=== PATIENT | female | born 1940 | race Caucasian/White ===

== ENCOUNTER 2023-11-03 20:33 | Inpatient (IN) | payer MEDICARE, OTHER ==
[~2023-11-03] VITALS: Ht 170.2 cm; Wt 83.5 kg
[2023-11-03 21:00] VITALS: PULSE 101; RESP 23; O2SAT 94
[2023-11-03 21:27] LABS: Basophils # (auto) 0 10 ^3/uL (0-0.2); Eosinophils # (auto) 0 10 ^3/uL (0-0.8); Mean Corpuscular Volume 98.5 fL (80.0-100.0)
[2023-11-03 21:28] LABS: Basophils % (auto) 0.1 % (0.0-2.0); Hematocrit 52.3 % (36.0-46.0); Hemoglobin 18.3 g/dL (12.2-16.2); Lymphocytes # (auto) 0.7 10 ^3/uL (0.4-5.4); Lymphocytes % (auto) 5.4 % (10.0-50.0); Mean Corpuscular Hemoglobin 34.5 pg (28.0-32.0); Monocytes % (auto) 7.6 % (0.0-12.0); Neutrophils # (auto) 11.5 10 ^3/uL (1.6-8.6); Neutrophils % (auto) 86.9 % (37.0-80.0); Nucleated Red Blood Cells % 0.2 %; Red Blood Cells 5.31 10^6/uL (4.0-5.20); Red Cell Distribution Width 12.9 % (11.8-14.3); White Blood Cell 13.2 10^3/uL (4.4-10.8)
[2023-11-03 21:49] LABS: Alanine Aminotransferase 18 U/L (7-40); Albumin 4.3 g/dL (3.2-4.8); Alkaline Phosphatase 68 U/L (46-116); Anion Gap 18 (5-15); Aspartate Aminotransferase 19 U/L (13-40); BUN/Creatinine Ratio 14.1 (10.0-20.0); Blood Urea Nitrogen 66 mg/dL (9-23); Calcium 10.6 mg/dL (8.7-10.4); Carbon Dioxide 17 mmol/L (20-30); Chloride 101 mmol/L (98-107); Glucose 144 mg/dL (74-106); Potassium 4.2 mmol/L (3.5-5.1); Sodium 136 mmol/L (136-145)
[2023-11-03 21:50] LABS: Bilirubin, Total 1.5 mg/dL (0.2-1.0); Total Protein 7.7 g/dL (5.7-8.2)
[2023-11-03] MEDS: SODIUM CHLORIDE 0.9% 1,000 ML IV ONE (21:57)
[2023-11-03 22:02] LABS: Lactic Acid w/Reflex 2.8 mmol/L (0.4-2.0)
[2023-11-03] MEDS ORDERED: ACETAMINOPHEN 325 MG TAB PO PRN (22:45)
[2023-11-03] MEDS ORDERED: ONDANSETRON HCL 4 MG/2 ML VIAL IV PRN (22:45)
[2023-11-03] MEDS ORDERED: HYDROcodone-ACET 5/325MG TAB PO PRN (22:45)
[2023-11-03] MEDS ORDERED: DOCUSATE SOD 100 MG CAP PO PRN (22:45)
[2023-11-03] MEDS ORDERED: VANCOMYCIN PER PHARMACY 0 MG IV SCH (22:45)
[2023-11-03] MEDS: ASPirin 81 mg TAB PO ONE (23:25)
[2023-11-03] MEDS: cefTRIAXone 1GM/50ML D5W 50 ML IV ONE (23:25)
[2023-11-03] MEDS ORDERED: NITROGLYCERIN 0.4 MG SL TAB SL PRN (23:30)
[2023-11-03] MEDS ORDERED: MORPHINE SULFATE INJ 2 MG/ml SYRG IV PRN (23:30)
[2023-11-03] MEDS: VANCOMYCIN 1GM/200ML 200 ML IV ONE (23:57)
[2023-11-04] VITALS (10 sets, daily range): BP systolic 95–159; BP diastolic 50–81; PULSE 55–95; RESP 16–20; TEMP 97.6–98.1; O2SAT 93–98
[2023-11-04] MEDS: LEVOTHYROXINE SODIUM 88 MCG TAB PO SCH (06:26)
[2023-11-04 07:54] LABS: Basophils # (auto) 0 10 ^3/uL (0-0.2); Basophils % (auto) 0.1 % (0.0-2.0); Eosinophils # (auto) 0 10 ^3/uL (0-0.8)
[2023-11-04 07:56] LABS: Alanine Aminotransferase 16 U/L (7-40); Albumin 3.6 g/dL (3.2-4.8); Alkaline Phosphatase 56 U/L (46-116); Anion Gap 14 (5-15); Aspartate Aminotransferase 15 U/L (13-40); BUN/Creatinine Ratio 16.4 (10.0-20.0); Bilirubin, Total 1.1 mg/dL (0.2-1.0); Blood Urea Nitrogen 70 mg/dL (9-23); Calcium 9.6 mg/dL (8.7-10.4); Carbon Dioxide 18 mmol/L (20-30); Chloride 101 mmol/L (98-107); Glucose 102 mg/dL (74-106); Potassium 3.7 mmol/L (3.5-5.1); Sodium 133 mmol/L (136-145); Total Protein 6.5 g/dL (5.7-8.2)
[2023-11-04 07:57] LABS: Lymphocytes # (auto) 1.5 10 ^3/uL (0.4-5.4); Lymphocytes % (auto) 11.8 % (10.0-50.0); Mean Corpuscular Hemoglobin 34.1 pg (28.0-32.0); Mean Corpuscular Hgb Conc. 34.8 g/dL (32.0-36.0); Monocytes % (auto) 8.1 % (0.0-12.0); Neutrophils # (auto) 10.1 10 ^3/uL (1.6-8.6); Nucleated Red Blood Cells % 0.1 %; Red Blood Cells 4.69 10^6/uL (4.0-5.20); White Blood Cell 12.7 10^3/uL (4.4-10.8)
[2023-11-04] MEDS: cefTRIAXone 1GM/50ML D5W 50 ML IV SCH (08:51)
[2023-11-04] MEDS: ASPirin 81 mg TAB PO SCH (08:52)
[2023-11-04] MEDS: SODIUM CHLORIDE 0.9% 1,000 ML IV SCH (10:00)
[2023-11-04 10:32] LABS: Magnesium 3.2 mg/dL (1.6-2.6)
[2023-11-04 10:33] LABS: Phosphorus 5.3 mg/dL (2.4-5.1)
[2023-11-04 10:57] LABS: Urine Bacteria None Seen /hpf (None Seen)
[2023-11-04 11:29] LABS: Sodium Urine < 10 mmol/L (40-220)
[2023-11-04 11:33] LABS: Protein, Urine 69.4 mg/dL (0.0-11.9)
[2023-11-04 11:38] LABS: Urine Blood Negative /uL (Negative); Urine Clarity Turbid (Clear); Urine Color Yellow (Yellow); Urine Hyaline Cast FEW /lpf (0 - 2); Urine Mucus FEW (None Seen); Urine Protein, UAD 1+ (Negative); Urine Specific Gravity 1.023 (1.001-1.035); Urine Urobilinogen Normal (Negative); Urine WBC 5 /hpf (0 - 5)
[2023-11-04] MEDS: metroNIDAZOLE 500 MG TAB PO ONE (19:47)
[2023-11-04] MEDS: ATORVASTATIN 20 MG TAB PO SCH (21:27)
[2023-11-05] VITALS (8 sets, daily range): BP systolic 88–109; BP diastolic 46–64; PULSE 60–72; RESP 16–18; TEMP 97.2–98.2; O2SAT 96–100
[2023-11-05] MEDS: metroNIDAZOLE 500 MG TAB PO SCH (05:58)
[2023-11-05 06:55] LABS: Basophils # (auto) 0 10 ^3/uL (0-0.2); Basophils % (auto) 0.1 % (0.0-2.0); Eosinophils # (auto) 0.1 10 ^3/uL (0-0.8); Eosinophils % (auto) 0.7 % (0.0-7.0); Lymphocytes # (auto) 1.8 10 ^3/uL (0.4-5.4); Lymphocytes % (auto) 18.1 % (10.0-50.0); Mean Corpuscular Hemoglobin 34.1 pg (28.0-32.0); Mean Corpuscular Hgb Conc. 34.8 g/dL (32.0-36.0); Mean Corpuscular Volume 97.8 fL (80.0-100.0); Monocytes % (auto) 10.1 % (0.0-12.0); Neutrophils # (auto) 7.1 10 ^3/uL (1.6-8.6); Nucleated Red Blood Cells % 0.2 %; Red Cell Distribution Width 12.9 % (11.8-14.3); White Blood Cell 9.9 10^3/uL (4.4-10.8)
[2023-11-05 07:23] LABS: Alanine Aminotransferase 14 U/L (7-40); Alkaline Phosphatase 58 U/L (46-116); Anion Gap 12 (5-15); BUN/Creatinine Ratio 19.4 (10.0-20.0); Blood Urea Nitrogen 62 mg/dL (9-23); Calcium 8.8 mg/dL (8.7-10.4); Carbon Dioxide 17 mmol/L (20-30); Chloride 102 mmol/L (98-107); Glucose 93 mg/dL (74-106); Magnesium 2.7 mg/dL (1.6-2.6); Potassium 3.1 mmol/L (3.5-5.1); Sodium 131 mmol/L (136-145)
[2023-11-05 07:24] LABS: Albumin 3.1 g/dL (3.2-4.8); Aspartate Aminotransferase 12 U/L (13-40); Bilirubin, Total 0.6 mg/dL (0.2-1.0); Total Protein 5.7 g/dL (5.7-8.2)
[2023-11-05] MEDS: POTASSIUM EFFERVESENT TAB 25 MEQ PO ONE (13:40)
[2023-11-05] MEDS: CHOLECALCIFEROL (VITD3) 1,000UNIT=25mCg TAB PO ONE (14:08)
[2023-11-06] VITALS (8 sets, daily range): BP systolic 99–120; BP diastolic 52–63; PULSE 58–75; RESP 15–20; TEMP 97–98.8; O2SAT 96–99
[2023-11-06] MEDS: CHOLECALCIFEROL (VITD3) 1,000UNIT=25mCg TAB PO SCH (10:00)
[2023-11-06 11:28] LABS: Chloride 100 mmol/L (98-107); Potassium 4.1 mmol/L (3.5-5.1); Sodium 131 mmol/L (136-145)
[2023-11-06 11:29] LABS: Anion Gap 11 (5-15); Calcium 9.1 mg/dL (8.7-10.4); Carbon Dioxide 20 mmol/L (20-30)
[2023-11-06 11:34] LABS: BUN/Creatinine Ratio 26.3 (10.0-20.0); Blood Urea Nitrogen 62 mg/dL (9-23); Glucose 97 mg/dL (74-106)
[2023-11-06] MEDS ORDERED: POLYETHYLENE GLYCOL 17 GM PWDR PO ONE (16:45)
[2023-11-07] VITALS (8 sets, daily range): BP systolic 94–114; BP diastolic 47–58; PULSE 58–68; RESP 16–18; TEMP 97.7–98.7; O2SAT 94–99
[2023-11-07] MEDS: Ensure HIGH Protein Chocolate 8oz Bottle PO SCH (08:00)
[2023-11-07] MEDS: POLYETHYLENE GLYCOL 17 GM PWDR PO SCH (09:45)
[2023-11-07 11:12] LABS: Chloride 105 mmol/L (98-107); Potassium 3.5 mmol/L (3.5-5.1); Sodium 133 mmol/L (136-145)
[2023-11-07 11:13] LABS: Anion Gap 5 (5-15); Carbon Dioxide 23 mmol/L (20-30)
[2023-11-07 11:14] LABS: Calcium 8.6 mg/dL (8.7-10.4)
[2023-11-07 11:18] LABS: Glucose 108 mg/dL (74-106)
[2023-11-07 11:19] LABS: Magnesium 1.9 mg/dL (1.6-2.6)
[2023-11-07 11:34] LABS: Blood Urea Nitrogen 44 mg/dL (9-23)
[2023-11-07] MEDS: SODIUM CHLORIDE 0.9% 1,000 ML IV SCH (14:00)
[2023-11-08] VITALS (8 sets, daily range): BP systolic 102–148; BP diastolic 55–74; PULSE 52–76; RESP 16–21; TEMP 97.6–98.9; O2SAT 93–98
[2023-11-08 06:13] LABS: Anion Gap 8 (5-15); Carbon Dioxide 20 mmol/L (20-30); Chloride 107 mmol/L (98-107); Potassium 3.9 mmol/L (3.5-5.1); Sodium 135 mmol/L (136-145)
[2023-11-08 06:14] LABS: Calcium 8.8 mg/dL (8.7-10.4)
[2023-11-08 06:19] LABS: BUN/Creatinine Ratio 21.1 (10.0-20.0); Blood Urea Nitrogen 36 mg/dL (9-23); Glucose 78 mg/dL (74-106)
[2023-11-08 10:31] LABS: Basophils # (auto) 0 10 ^3/uL (0-0.2); Basophils % (auto) 0.4 % (0.0-2.0); Eosinophils # (auto) 0.8 10 ^3/uL (0-0.8); Eosinophils % (auto) 8.2 % (0.0-7.0); Hematocrit 44.6 % (36.0-46.0); Hemoglobin 14.9 g/dL (12.2-16.2); Lymphocytes % (auto) 21.4 % (10.0-50.0); Mean Corpuscular Hemoglobin 33.8 pg (28.0-32.0); Mean Corpuscular Hgb Conc. 33.3 g/dL (32.0-36.0); Mean Corpuscular Volume 101.5 fL (80.0-100.0); Monocytes # (auto) 0.9 10 ^3/uL (0-1.3); Monocytes % (auto) 10.2 % (0.0-12.0); Neutrophils # (auto) 5.5 10 ^3/uL (1.6-8.6); Neutrophils % (auto) 59.8 % (37.0-80.0); Nucleated Red Blood Cells % 0.1 %; Red Blood Cells 4.39 10^6/uL (4.0-5.20); Red Cell Distribution Width 13.2 % (11.8-14.3); White Blood Cell 9.2 10^3/uL (4.4-10.8)
[2023-11-08] MEDS: ENOXAPARIN SOD 80 MG/0.8ML SYRINGE SC ONE (16:34)
[2023-11-08] MEDS ORDERED: ENOXAPARIN SOD 80 MG/0.8ML SYRINGE SC SCH (22:00)
[2023-11-09] VITALS (8 sets, daily range): BP systolic 106–152; BP diastolic 52–81; PULSE 57–75; RESP 16–20; TEMP 97.4–98.4; O2SAT 90–98
[2023-11-09 07:26] LABS: Basophils # (auto) 0 10 ^3/uL (0-0.2); Basophils % (auto) 0.3 % (0.0-2.0); Eosinophils # (auto) 1.2 10 ^3/uL (0-0.8); Eosinophils % (auto) 12.3 % (0.0-7.0); Hematocrit 42.1 % (36.0-46.0); Hemoglobin 14.4 g/dL (12.2-16.2); Lymphocytes % (auto) 20.1 % (10.0-50.0); Mean Corpuscular Hemoglobin 34.2 pg (28.0-32.0); Mean Corpuscular Hgb Conc. 34.2 g/dL (32.0-36.0); Mean Corpuscular Volume 99.9 fL (80.0-100.0); Monocytes # (auto) 0.9 10 ^3/uL (0-1.3); Monocytes % (auto) 9.6 % (0.0-12.0); Neutrophils # (auto) 5.6 10 ^3/uL (1.6-8.6); Neutrophils % (auto) 57.7 % (37.0-80.0); Nucleated Red Blood Cells % 0.2 %; Red Blood Cells 4.21 10^6/uL (4.0-5.20); Red Cell Distribution Width 13.1 % (11.8-14.3); White Blood Cell 9.7 10^3/uL (4.4-10.8)
[2023-11-09] MEDS ORDERED: ENOXAPARIN SOD 80 MG/0.8ML SYRINGE SC SCH (10:00)
[2023-11-09] MEDS: ENOXAPARIN SOD 80 MG/0.8ML SYRINGE SC SCH (10:03)
[2023-11-09 11:59] LABS: Anion Gap 5 (5-15); Calcium 8.6 mg/dL (8.7-10.4); Carbon Dioxide 22 mmol/L (20-30); Chloride 108 mmol/L (98-107); Potassium 4.2 mmol/L (3.5-5.1); Sodium 135 mmol/L (136-145)
[2023-11-09 12:05] LABS: BUN/Creatinine Ratio 15.8 (10.0-20.0); Glucose 115 mg/dL (74-106)
[2023-11-09 12:06] LABS: Blood Urea Nitrogen 24 mg/dL (9-23)
[2023-11-09] MEDS: APIXABAN 5 MG TAB PO SCH (21:53)
[2023-11-10] VITALS (7 sets, daily range): BP systolic 103–114; BP diastolic 49–57; PULSE 54–71; RESP 18–20; TEMP 97.4–98.4; O2SAT 95–98
[2023-11-10 07:05] LABS: Basophils # (auto) 0 10 ^3/uL (0-0.2); Hemoglobin 10.3 g/dL (12.2-16.2); Monocytes # (auto) 0.6 10 ^3/uL (0-1.3)
[2023-11-10 07:07] LABS: Basophils % (auto) 0.7 % (0.0-2.0); Eosinophils # (auto) 0.7 10 ^3/uL (0-0.8); Eosinophils % (auto) 12.3 % (0.0-7.0); Hematocrit 29.9 % (36.0-46.0); Lymphocytes # (auto) 1.2 10 ^3/uL (0.4-5.4); Lymphocytes % (auto) 20.7 % (10.0-50.0); Mean Corpuscular Hemoglobin 34.6 pg (28.0-32.0); Mean Corpuscular Hgb Conc. 34.3 g/dL (32.0-36.0); Mean Corpuscular Volume 100.8 fL (80.0-100.0); Monocytes % (auto) 10.7 % (0.0-12.0); Neutrophils # (auto) 3.3 10 ^3/uL (1.6-8.6); Neutrophils % (auto) 55.6 % (37.0-80.0); Nucleated Red Blood Cells % 0.1 %; Red Blood Cells 2.96 10^6/uL (4.0-5.20); Red Cell Distribution Width 13.2 % (11.8-14.3)
[2023-11-10 07:36] LABS: BUN/Creatinine Ratio 21.3 (10.0-20.0); Blood Urea Nitrogen 27 mg/dL (9-23); Chloride 109 mmol/L (98-107); Glucose 78 mg/dL (74-106); Sodium 138 mmol/L (136-145)
[2023-11-10 07:39] LABS: Anion Gap 6 (5-15); Calcium 8.9 mg/dL (8.7-10.4); Carbon Dioxide 23 mmol/L (20-30)
[2023-11-10 14:17] LABS: Hemoglobin 13.2 g/dL (12.2-16.2)
[2023-11-10 14:19] LABS: Hematocrit 38.7 % (36.0-46.0)
[2023-11-11] VITALS (7 sets, daily range): BP systolic 96–131; BP diastolic 48–78; PULSE 63–80; RESP 14–18; TEMP 97.5–98.3; O2SAT 95–98
[2023-11-11 10:42] LABS: Chloride 111 mmol/L (98-107); Potassium 3.7 mmol/L (3.5-5.1); Sodium 140 mmol/L (136-145)
[2023-11-11 10:43] LABS: Anion Gap 5 (5-15); Calcium 8.5 mg/dL (8.7-10.4); Carbon Dioxide 24 mmol/L (20-30)
[2023-11-11 10:48] LABS: BUN/Creatinine Ratio 17.1 (10.0-20.0); Blood Urea Nitrogen 19 mg/dL (9-23); Glucose 106 mg/dL (74-106)
[2023-11-16] MEDS ORDERED: APIXABAN 5 MG TAB PO SCH (22:00)
== END 2023-11-11 18:15 | DRG 682 ==
LOC: ER 20:33 → EDBD 20:33 → TELE 23:29 → TELE-WESTW 11-04 01:30 → WEST WING 11-07 14:40
PROVIDERS: ADMIT Internal Medicine; ATTEND Emergency Medicine
DX: N17.0 Acute kidney failure with tubular necrosis (principal); G92.8 Other toxic encephalopathy; I21.A1 Myocardial infarction type 2; R65.10 Systemic inflammatory response syndrome (SIRS) of non-infectious origin without acute organ dysfunction; E44.1 Mild protein-calorie malnutrition; E87.1 Hypo-osmolality and hyponatremia; E87.20 Acidosis, unspecified; I82.432 Acute embolism and thrombosis of left popliteal vein; N25.81 Secondary hyperparathyroidism of renal origin; E86.0 Dehydration; D72.829 Elevated white blood cell count, unspecified; D69.6 Thrombocytopenia, unspecified; E03.9 Hypothyroidism, unspecified; E83.39 Other disorders of phosphorus metabolism; E83.41 Hypermagnesemia; E83.52 Hypercalcemia; E86.1 Hypovolemia; N18.9 Chronic kidney disease, unspecified; G89.29 Other chronic pain; M54.9 Dorsalgia, unspecified; I95.9 Hypotension, unspecified; E88.09 Other disorders of plasma-protein metabolism, not elsewhere classified; K59.00 Constipation, unspecified; Z68.28 Body mass index [BMI] 28.0-28.9, adult; R73.9 Hyperglycemia, unspecified; F10.20 Alcohol dependence, uncomplicated; E55.9 Vitamin D deficiency, unspecified; E87.70 Fluid overload, unspecified
CPT/HCPCS: 36415; 71045; 76775; 80048; 80053; 81001; 82140; 82306; 82550; 82570; 83036; 83605; 83615; 83735; 83880; 83970; 84100; 84156; 84300; 84443; 84484; 85014; 85018; 85025; 87040; 87045; 87427; 93971; 97110; 97116; 97163; 97530; G0378